=== PATIENT | male | born 1975 ===

== ENCOUNTER 2018-08-12 05:33 | Inpatient (IN) | payer OTHER ==
[~2018-08-12] VITALS: Ht 172.7 cm; Wt 81.6 kg
[2018-08-12] VITALS (17 sets, daily range): BP systolic 97–127; BP diastolic 52–74
[~2018-08-12 05:33] MED LIST: NKM
[2018-08-12] MEDS ORDERED: ceFAZolin sod 2 GM in D5W 55 ML IVP ONE (06:00)
[2018-08-12] MEDS ORDERED: Midazolam 2mg/2ml Inj ONE (06:59)
[2018-08-12] MEDS ORDERED: fentaNYL 100 mcg/2 mL IV ONE (06:59)
[2018-08-12] MEDS ORDERED: Thrombin 5000 units TOPIC ONE ×2 (07:08→07:37)
[2018-08-12] MEDS ORDERED: Vancomycin 1gm vial IVPB ONE (07:08)
[2018-08-12] MEDS ORDERED: Gelfoam Size TOPIC ONE (07:08)
[2018-08-12] MEDS ORDERED: Bacitracin 50000 Units Vial ONE ×2 (07:08→08:36)
[2018-08-12] MEDS ORDERED: Bupivacaine w/Epi 0.5% 30ml Vial INJ ONE (07:08)
[2018-08-12] MEDS ORDERED: Zemuron 50mg/5ml Inj IV ONE ×2 (07:09→09:25)
[2018-08-12] MEDS ORDERED: Succinylcholine 20mg/ml 10ml vial ONE (07:09)
[2018-08-12] MEDS ORDERED: Heparin 1000 units/ml 1ml Vial ONE (07:10)
[2018-08-12] MEDS ORDERED: Sterile Water Irrig 1000ml IRRIG ONE (07:30)
[2018-08-12] MEDS ORDERED: NS Irrig 1000ml ONE (07:30)
[2018-08-12] MEDS ORDERED: LR 1000ml ONE (07:30)
[2018-08-12] MEDS ORDERED: Propofol 1,000mg/ 100ml btl IV ONE (07:30)
--- NOTE | 2018-08-12 07:31 | Pre-Procedure Note/Attestation ---
Pre-Procedure Note/Attestation Complete Prior to Procedure Procedure Narrative: ACDF C45 and C56 with iliac crest bone marrow aspiration with allograft and autograft Attestation I attest that I discussed the nature of the procedure; its benefits; risks and complications; and alternatives (and the risks and benefits of such alternatives ), prior to the procedure, with the patient (or the patient's legal open claims representative). I attest that, if there was a reasonable possibility of needing a blood transfusion, the patient (or the patient's legal open claims representative) was given the [facility] standardized written summary, pursuant to the [place] Sujit Blood Safety Act ([place] Health and Safety Code # 1645, as amended). I attest that I re-evaluated the patient just prior to the surgery and that there has been no change in the patient's H&P, except as documented below: Jhonatan Griggs MD Aug 12, 2018 07:30
[2018-08-12] MEDS ORDERED: NS Irrig 1000ml IRRIG ONE (07:37)
--- NOTE | 2018-08-12 08:29 | Anethesia Preoperative Eval ---
Anesthesia Pre-op PMH/ROS General Date of Evaluation: Aug 12, 2018 Time of Evaluation: 07:12 Anesthesiologist: Charissa ASA Score: ASA 2 Mallampati Score Class I : Soft palate, uvula, fauces, pillars visible Class II: Soft palate, uvula, fauces visible Class III: Soft palate, base of uvula visible Class IV: Only hard plate visible Mallampati Classification: Class II Surgeon: Indu Diagnosis: Cervical radiculopathy Surgical Procedure: ACDF C4-C6 Anesthesia History: none Social History: smoking - h/o Family History: no anesthesia problems Allergies: Coded Allergies: No Known Allergies (Unverified , 08/11/18) Patient NPO?: Yes NPO Date: Aug 11, 2018 NPO Time: 2329 Past Medical History Cardiovascular: Denies: HTN, CAD, CO, valve dz, arrhythmia, other Pulmonary: Denies: asthma, COPD, DESTINY, other Gastrointestinal/Genitourinary: Reports: GERD - mild; Denies: CRI, ESRD, other Neurologic/Psychiatric: Denies: dementia, CVA, depression/anxiety, TIA, other Endocrine: Denies: DM, hypothyroidism, steroids, other HEENT: Denies: cataract (L), cataract (R), glaucoma, MESA GRANDE (L), MESA GRANDE (R), other Hematology/Immune: Denies: anemia, DVT, bleeding disorder, other Musculoskeletal/Integumentary: Denies: OA, RA, DJD, DDD, edema, other PMH Narrative: as above PSxH Narrative: none Anesthesia Pre-op Phys. Exam Physician Exam Last Vital Signs Date Time Temp Pulse Resp B/P (MAP) Pulse Ox O2 Delivery O2 Flow Rate FiO2 08/12/18 06:21 97.7 64 20 104/60 (75) 98 08/12/18 06:06 Room Air Constitutional: NAD Neurologic: CN 2-12 intact Cardiovascular: RRR, no M/R/G Respiratory: CTA Gastrointestinal: S/NT/ND Airway Exam Mallampati Score: Class II MO: full Neck: stiff ROM: limited Teeth: missing Dentures: no upper, no lower Anesthesia Pre-op A/P Labs see chart Studies Pre-op Studies: EKG - NSR, CXR - WNL Risk Assessment & Plan Assessment: ASA2 Plan: GA with ETT neuromonitoring Status Change Before Surgery: No Pre-Antibiotics Dru gr. Given Within 1 Hr of Incision: Yes Time Given: 08:12 Raman Carrington MD Aug 12, 2018 08:29
[2018-08-12] MEDS ORDERED: Acetaminophen (Non formulary) 100 ML IV ONE (08:30)
[2018-08-12] MEDS ORDERED: Morphine Sulfate 10mg/ml Inj ONE (08:33)
[2018-08-12] MEDS ORDERED: Ketorolac 30mg Inj ONE (08:35)
[2018-08-12] MEDS ORDERED: Sodium Chloride 10ml vial INJ ONE (08:35)
[2018-08-12] MEDS ORDERED: LR 1000ml 1,000 ML IVLG SCH (08:49)
[2018-08-12] MEDS ORDERED: Midazolam 2mg/2ml Inj IVP PRN (09:00)
[2018-08-12] MEDS ORDERED: Meperidine 50mg/ml Inj(FOR RIGORS ONLY) IV PRN (09:00)
[2018-08-12] MEDS ORDERED: Ketorolac 30mg Inj IV PRN (09:00)
[2018-08-12] MEDS ORDERED: DiphenhydrAMINE 50mg/ml Inj IVP PRN (09:00)
[2018-08-12] MEDS ORDERED: Hydromorphone 0.5mg/0.5ml inj IVP PRN (09:00)
--- NOTE | 2018-08-12 09:00 | NUR ---
CASE MANAGEMENT:REVIEW 43 YR OLD MALE HERE FOR ELECTIVE SURGERY SI: CERVICAL RADICULOPATHY 97.7 64 20 104/60 98% ON RA IS: TO SURGERY: ANTERIOR CERVICAL DISCECTOMY FUSION : CURRENTLY IN SURGERY
[2018-08-12] MEDS ORDERED: Neostigmine 1mg/ml 10ml Inj ONE (09:21)
[2018-08-12] MEDS ORDERED: Glycopyrrolate 0.2mg/ml 1ml Vial ONE (09:21)
[2018-08-12] MEDS ORDERED: Propofol 200mg/20ml IV ONE (10:00)
[2018-08-12] MEDS ORDERED: Naloxone 0.4mg/ml Inj IVP PRN (11:00)
[2018-08-12] MEDS ORDERED: Norco 5mg/325mg tab ORAL PRN (11:00)
[2018-08-12] MEDS ORDERED: Metoclopramide 10mg/2ml Inj IVP PRN (11:00)
[2018-08-12] MEDS ORDERED: HYDROcodone/Acetamin 7.5/325 tab ORAL PRN ×2 (11:00)
[2018-08-12] MEDS ORDERED: HYDROmorphone 1mg/ml Carpuject SUBQ PRN (11:00)
[2018-08-12] MEDS ORDERED: HYDROmorphone 1mg/ml Carpuject IVP PRN (11:00)
[2018-08-12] MEDS ORDERED: Milk of Magnesia 30ml Ud ORAL PRN (11:00)
--- NOTE | 2018-08-12 11:07 | Brief Operative Note ---
Immediate Post Operative Note Operative Note Pre-op Diagnosis: cervical myeloradiculopathy Procedure: ACDF C45 AND C56 WITH BMAC + Post-op Diagnosis: same as pre-op Findings: consistent w/pre-op dx studies Surgeon: JACKLYN Supervisor [employer]: GERRY Anesthesiologist: AVRIL Anesthesia: general Specimen: yes Complications: none Condition: stable Fluids: 1L Estimated Blood Loss: minimal - 25CC Drains: none Implant(s) used?: Yes - PIONEER RTI AND 3D CORELINK Jhonatan Griggs MD Aug 12, 2018 11:07
--- NOTE | 2018-08-12 11:27 | Immediate Post-Op Evaluation ---
Immediate Post-Op Evalulation Immediate Post-Op Evalulation Procedure: ACDF C4-C5 C5-C6 Date of Evaluation: Aug 12, 2018 Time of Evaluation: 11:26 IV Fluids: 1000 Blood Products: none Estimated Blood Loss: <50 Urinary Output: 200 Blood Pressure Systolic: 124 Blood Pressure Diastolic: 76 Pulse Rate: 78 Respiratory Rate: 20 O2 Sat by Pulse Oximetry: 99 Temperature (Fahrenheit): 97.6 Pain Score (1-10): 2 Nausea: No Vomiting: No Complications none Patient Status: reacts, patent, extubated, none Hydration Status: adequate Raman Carrington MD Aug 12, 2018 11:27
--- NOTE | 2018-08-12 11:43 | Diagnostic Imaging Report ---
INDICATION: Pain, intraoperative TECHNIQUE: Intraoperative imaging Fluoroscopy time: 8.9 seconds Total dose: 0.73920 mGym2 Total number of images: 4 COMPARISON: None FINDINGS: Intraoperative images demonstrate initially surgical tool projected over the anterior aspect of the C6 vertebral body. Subsequent images demonstrate anterior fusion hardware and disc spacers bridging C4-C6 IMPRESSION: Intraoperative imaging, as described
--- NOTE | 2018-08-12 12:55 | NUR ---
NURSE NOTES: Mirella Hagen RN brought patient by bed in stable condition. Alert and oriented x4. No complain of pain or distress at this time. Skin intact and dry. Surgical dressing intact and dry and on Siloam collar. IV dressing intact and dry. No bleeding or swelling on IV site. IV fluid on going as ordered. Belonging checked. Bed lowest position. Call light within reach. Will continue to monitor.
[2018-08-12] MEDS: D5 1/2NS 1,000 ML IV SCH ×2 (13:50→22:41)
[2018-08-12] MEDS: Docusate 100mg cap ORAL SCH (17:47)
[2018-08-12] MEDS: ceFAZolin sod 1 GM in D5W 55 ML IV SCH (18:31)
--- NOTE | 2018-08-12 19:45 | NUR ---
HAND-OFF: Report given to Peg MOORE. Patient in stable condition.
[2018-08-13] VITALS: BP 106/65
[2018-08-13] MEDS: ceFAZolin sod 1 GM in D5W 55 ML IV SCH ×2 (03:12→11:22)
[2018-08-13 04:00] VITALS: BP 118/73
--- NOTE | 2018-08-13 04:00 | Operative Note - Dictated ---
DATE OF OPERATION: 08/12/2018 PREOPERATIVE DIAGNOSES: C4-C5 and C5-C6 disk protrusions with severe stenosis, spinal cord compression, and myeloradiculopathy. POSTOPERATIVE DIAGNOSES: C4-C5 and C5-C6 disk protrusions with severe stenosis, spinal cord compression, and myeloradiculopathy. PROCEDURE PERFORMED: 1. Anterior cervical diskectomy and foraminotomy and interbody fusion at C4-C5 and C5-C6. 2. Anterior cervical instrumentation at C4 through C6. 3. Insertion of biomechanical device at C4-C5 and C5-C6 with allograft, local autograft, and bone marrow aspirate concentrate. 4. Acquisition of bone marrow aspirate from the right ilium. SURGEON: Jhonatan Griggs M.D. HORSE DOCTOR: Jonathon Higgins M.D. ANESTHESIA: General endotracheal anesthesia. SPECIMEN: C4-C5 and C5-C6 disk. ANESTHESIOLOGIST: Raman Carrington M.D. ESTIMATED BLOOD LOSS: 25 mL. IV ANTIBIOTICS: A 2 g of Ancef. INTRAOPERATIVE FINDINGS: 1. A large disk herniation at C5-C6 with spinal cord compression, nerve root impingement, spondylosis, foraminal stenosis, and impingement of the exiting bilateral nerve. 2. Disk herniation at C4-C5 with intraforaminal extension, foraminal stenosis, and impingement of the bilateral C5 nerve roots. COMPLICATIONS: None. BACKGROUND: This is a pleasant gentleman, who failed nonoperative treatment and option for above treatment was given. Risks, alternatives, and benefits were discussed with the patient at length. Risks include but are not limited to anesthesia complications including ; medical complications including liver, kidney, cardiopulmonary deficits, bleeding, infection, dysphonia, dysphagia, hematoma of the neck, nerve root injury, paralysis, spinal cord injury, CSF leak, dural tear, fracture of the hardware, loosening of the hardware, need for revision and decompression and fusion, swallowing difficulties, esophageal injury, tracheal injury, recurrent laryngeal nerve injury as well as other complications including . The patient understood and wished to proceed. Written and verbal consent was given. No guarantees were given. DESCRIPTION OF OPERATION: The patient was brought into the operating room supine on a stretcher. Appropriate IV lines were placed by the anesthesiologist. A 2 g of Ancef was administered. A surgical time-out was called. The patient was induced and intubated without complication. The patient was positioned onto the operating room table. The neck was placed in neutral alignment. The arms were tucked by the sides. All bony prominences were well padded as well as the four extremities. Neurophysiological leads were placed and baseline recordings were done and EMG and SSEP remained stable throughout the case. Preoperative fluoroscopy revealed the planned incision to be on the right side over the C5 vertebral body. Fluoroscopy showed the neck to be in adequate alignment. The neck was prepped and draped in the usual sterile fashion with alcohol, chlorhexidine scrub, ChloraPrep, and Ioban draping. An incision was carried out with a scalpel over the anterior right side of the neck. Please note that the right iliac crest was also prepped and draped in the usual sterile fashion. Now, an incision was carried out with the scalpel on the anterior right side of the neck in the crease of the neck. A [employer] needle was 04:19 two fingerbreadths posterior to the anterior superior iliac spine over the iliac crest and it was introduced into the center of the iliac crest. At this point, a total of 30 mL of bone marrow was aspirated from the iliac crest from 3 different sites of the iliac crest and packed off for concentration of stem cells. Once this was done, attention was diverted back to the neck. Hemostasis was achieved with bipolar cautery in the neck. The platysma was incised in line with the skin incision. Blunt dissection was carried out in the interval between the strap muscles and the sternocleidomastoid. Superficial cervical fascia was dissected caudally as well as cephalad. Carotid pulse was palpated and was found to be well lateral to the field of dissection. Deep cervical fascia was encountered. Once the deep cervical fascia was found, blunt dissection was carried out with Kittners as well as finger dissection to find the prevertebral space. The longus colli was found on both sides of the spine and the longus colli was subperiosteally dissected off of the spine. At this point, retractors were set into place. Spinal needle was used to identify the C5-C6 disk space. This was positively identified via lateral fluoroscopy. Production Control Expert retractors were set into place. Please note from skin incision to skin closure, the surgery was done with an intraoperatively sterilely draped microscope. At this point, a Leksell rongeur was used to remove the anterior osteophytes at C5-C6 and with a #15 scalpel, a box incision was made into the anterior annulus and with straight and curved curettes, and #1, #2, #3 Kerrison punches, a radical diskectomy was done at C5-C6. Endplate cartilage was removed. Endplate bone was well preserved. A high-speed drill was used to drill the posterior aspect of the C5 and C6 vertebral bodies. Local autograft was saved from the vertebral bodies at C5 and C6 and the drilling was undertaken through the level of the posterior longitudinal ligament. There was a large disk herniation causing spinal cord compression as well as severe central canal stenosis, lateral recess stenosis, and foraminal stenosis. Once this was accomplished, a Microsect curette was used to remove the posterior longitudinal ligament and a complete decompression of the central canal, lateral recess, and foramina entailed with #1 and #2 Kerrison punches to completely decompress the spinal cord as well as the exiting nerve roots. Once this was accomplished, Valsalva at 40 mmHg was done. There was no CSF leak and now attention was diverted to the C4-C5 interspace. The retractors were moved to the C4-C5 interspace underneath the longus colli and once this was accomplished, a #15 scalpel was used to make a box incision and with the same instrument, the radical diskectomy was done. Endplate cartilage was removed. A high-speed drill was used to drill the posterior aspect of C4 and C5 vertebral body through the annulus to the level of the posterior longitudinal ligament. Microsect curette was used to remove the posterior longitudinal ligament. A disk herniation was found causing stenosis and impingement of the exiting nerve roots. With #1 and #2 Kerrison punches, the PLL and all disk herniated material was removed until complete decompression of the central canal, the spinal cord, the exiting nerves was accomplished. Valsalva at 40 mmHg was done. There was no CSF leak and now attention was diverted to placement of trials for the biomechanical devices. Trial from the [employer] 3D system was used and 2 biomechanical devices measuring 6 mm in height x 16.5 mm in width x 14 mm in depth with 7-degree lordosis was packed with local autograft, [employer] allograft, and bone marrow aspirate concentrate and was tamped into place at C4-C5 and C5-C6 with excellent re-creation of height and lordosis. Now, a 32 mm RDI Cardwell plate was used. It was bent into a lordotic shape and with one 14 mm self-drilling screw and five 16 mm self-drilling screws were fixed to the anterior surface of the C4, C5, and C6 vertebral bodies with excellent purchase with each screw. Each screw sat below the locking mechanism of the Cardwell plate well and final AP and lateral fluoroscopy revealed all instrumentation to be in excellent position. At this point, hemostasis was achieved. There was no bleeding and therefore, a drain was deemed not to be necessary. The platysma was closed with 2-0 Vicryl sutures. The subcuticular layer was closed with 4-0 Monocryl. The skin was closed with Dermabond. Sterile dressing and tape was placed on the right hip and the anterior cervical spine. A cervical collar was placed. All sponge, needle, and instrument counts were correct. There were no complications during the case. The patient was extubated and was taken to the recovery room in stable condition. He was found to be neurovascularly intact and was admitted to the hospital for monitoring. Jhonatan Griggs M.D. DR: Tiffanie JOB#: [id number] CC:
[2018-08-13 08:00] VITALS: BP 114/68
--- NOTE | 2018-08-13 08:06 | NUR ---
HAND-OFF: Report given to charge nurse Lizzie.
[2018-08-13] MEDS: Docusate 100mg cap ORAL SCH ×2 (09:00→18:00)
--- NOTE | 2018-08-13 10:04 | 48 Hour Post Anesthesia Eval ---
Post Anesthesia Evaluation Procedure: ACDF C4-C5 C5-C6 Date of Evaluation: Aug 13, 2018 Time of Evaluation: 10:02 Blood Pressure Systolic: 118 0: 56 Pulse Rate: 72 Respiratory Rate: 20 Temperature (Fahrenheit): 97.9 O2 Sat by Pulse Oximetry: 98 Airway: patent Nausea: No Vomiting: No Pain Intensity: 2 Hydration Status: adequate Cardiopulmonary Status: stable Mental Status/LOC: patient returned to baseline Follow-up Care/Observations: n/a Post-Anesthesia Complications: none Follow-up care needed: ready to discharge Raman Carrington MD Aug 13, 2018 10:03
--- NOTE | 2018-08-13 10:45 | NUR ---
NURSE NOTES: Patient is in bed awake and able to verbalize needs. Patient is stable with no s/s acute distress. Denies pain or SOB at this time. patient is comfortable in bed with call light within reach. Will continue to monitor.
[2018-08-13] MEDS: D5 1/2NS 1,000 ML IV SCH ×2 (11:22→20:38)
[2018-08-13 12:00] VITALS: BP 106/69
[2018-08-13 16:00] VITALS: BP 119/72
--- NOTE | 2018-08-13 16:18 | NUR ---
PT Note PT trae completed, treatment initiated. Patient needs PT to instruct on proper body mechanics and to increase his balance to improve his safety in mobility and gait. Addendum: 08/13/18 at 1619 by COLTON BLACK PT Amended: Links added.
--- NOTE | 2018-08-13 20:11 | NUR ---
HAND-OFF: Report given to Fatimah MOORE. Patient is stable.
[2018-08-13 20:20] VITALS: BP 142/73
--- NOTE | 2018-08-13 20:55 | NUR ---
NURSE NOTES: PATIENT IN BED, AOX4. IV IN PLACE, RUNNING IV FLUIDS. HAD COMPLAINTS OF PAIN, DILAUDID PRN WAS GIVEN ORDERED. NO S/S DISTRESS NOTED. WEARING NECK BRACE/COLLAR. BED IN LOWEST POSITION, CALL LIGHT WITHIN REACH. WILL CONTINUE TO MONITOR.
[2018-08-14 00:35] VITALS: BP 94/51
[2018-08-14 04:00] VITALS: BP 113/77
[2018-08-14] MEDS: D5 1/2NS 1,000 ML IV SCH (04:18)
--- NOTE | 2018-08-14 06:36 | NUR ---
NURSE NOTES: PATIENT ASLEEP, NO DISTRESS.
--- NOTE | 2018-08-14 07:41 | NUR ---
HAND-OFF: Report given to VIK Clayton RN. ENDORSED TO AM NURSE THAT PATIENT STILL WANTS TO REMAIN DISCONNECTED FROM IV FLUIDS.
--- NOTE | 2018-08-14 07:47 | NUR ---
NURSE NOTES: AWAKE/ALERT. PAIN SCALE 4/10. ANTERIOR AND RT ILIAC DRESSING DRY AND INTACT. NECK COLLAR ON. NO C/O NUMBNESS/TINGLING BOYH HANDS. IN NO DISTRESS.
[2018-08-14 08:00] VITALS: BP 95/55
[2018-08-14] MEDS: Docusate 100mg cap ORAL SCH (08:46)
--- NOTE | 2018-08-14 11:20 | NUR ---
PT NOTE: Pt declined PT interventions this morning. Patient indicated "I am completely fine. I have been up and moving around on my own without a problem. I'm just waiting to go home, thanks." Primary nurse made aware of patient's refusal.
[2018-08-14 12:00] VITALS: BP 124/70
--- NOTE | 2018-08-14 13:15 | NUR ---
NURSE NOTES: DISCHARGED HOME VIA [facility]AXI VOUCHER IN STABLE CONDITION. DC INSTRUCTIONS GIVEN
--- NOTE | 2018-08-16 10:46 | Discharge Summary ---
Discharge Summary Hospital Course Date of Admission Aug 12, 2018 at 05:33 Date of Discharge Aug 14, 2018 at 13:15 Admitting Diagnosis Cervical myeloradiculopathy Reason for Hospitalization: elective surgery HPI Cesar Petersen is a 43 year old male who was admitted on Aug 12, 2018 at 05:33 for C4-C5 and C5-C6 disk protrusions with cervical myeloradiculopathy. Procedures s/p 08/12/[address] Griggs 1. Anterior cervical diskectomy and foraminotomy and interbody fusion at C4-C5 and C5-C6. 2. Anterior cervical instrumentation at C4 through C6. 3. Insertion of biomechanical device at C4-C5 and C5-C6 with allograft, local autograft, and bone marrow aspirate concentrate. 4. Acquisition of bone marrow aspirate from the right ilium. Hospital Course status post surgery course of recovery uneventful initially IV fluids s/p perioperative antibiotics neurovascular status closely monitored, stable anterior neck incision clean dry and intact cervical collar on R iliac dressing clean, dry, intact pain management was addressed, pain was controlled hemodynamically stable ambulated with PT use of incentive spirometry was encouraged while in the bed fall precautions maintained; safe for ambulation tolerated soft diet , IV fluids discontinued Chloraseptic lozenges were on board for discomfort as needed GI prophylaxis provided antiemetics were on board as needed voided freely bowel regimen instituted patient was stable for discharge discharge instructions provided use of cervical collar reinforced follow up with surgeon as advised by surgeon FINAL DIAGNOSES 1. Cervical myeloradiculopathy 2. Large disk herniation at C5-C6 with spinal cord compression, nerve root impingement, spondylosis, foraminal stenosis, and impingement of the exiting bilateral nerve 3 Large disk herniation at C4-C5 with intraforaminal extension, foraminal stenosis, and impingement of the bilateral C5 nerve roots 4.s/p ACDF C45 AND C56 WITH BMAC + Discharge Condition Upon Discharge: stable Discharge Disposition Patient was discharged to Home () Discharge Instructions Discharge Instructions Special Instructions I have been assigned to complete a D/C Summary on this account. I was not involved in the patient management Shama Stein NP Aug 16, 2018 10:46
== END 2018-08-14 13:15 | disposition home or self-care (01) | DRG 472 ==
LOC: SDSOVERFLO 05:33 → 3E 13:00
PROC: 00NW0ZZ Release Cervical Spinal Cord, Open Approach (ICD-10-PCS; principal; 2018-08-12 07:30)
PROC: 0RT30ZZ Resection of Cervical Vertebral Disc, Open Approach (ICD-10-PCS; principal; 2018-08-12 07:30)
PROC: 0RG2070 Fusion of 2 or more Cervical Vertebral Joints with Autologous Tissue Substitute, Anterior Approach, Anterior Column, Open Approach (ICD-10-PCS; principal; 2018-08-12 07:30)
PROC: 07DR3ZZ Extraction of Iliac Bone Marrow, Percutaneous Approach (ICD-10-PCS; principal; 2018-08-12 07:30)
DX: M50.121 Cervical disc disorder at C4-C5 level with radiculopathy (principal); M50.021 Cervical disc disorder at C4-C5 level with myelopathy; M47.22 Other spondylosis with radiculopathy, cervical region; M48.02 Spinal stenosis, cervical region
CPT/HCPCS: 36415; 72040; 76000; 86850; 86900; 86901; 87081; 94003; 94150; J2250; J2405; J2710; J2765